=== PATIENT | female | born 1985 | race Caucasian/White ===

== ENCOUNTER 2016-10-19 03:28 | Inpatient (IN) | payer OTHER ==
[2016-10-19] VITALS (37 sets, daily range): BP systolic 103–133; BP diastolic 58–77
[~2016-10-19] VITALS: Ht 165.1 cm; Wt 73.0 kg
[2016-10-19 04:55] LABS: HEMATOCRIT 36.8 % (36.0-46.0); MCH 31.3 PG (29.0-34.0); RBC DIS.WIDTH-CV 13.6 % (11.8-14.6); RBC DIS.WIDTH-SD 44.4 % (39-53); WHITE BLOOD COUNT 19.7 K/uL (4.1-10.2)
[2016-10-19 05:25] LABS: MEAN PLAT.VOLUME 12.9 uM^3 (9.5-12.4); PLATELET COUNT 183 K/uL (156-360)
[2016-10-20] VITALS (16 sets, daily range): BP systolic 94–120; BP diastolic 53–76
[2016-10-20] MEDS ORDERED: ENDOCET 5-3251 EACH PO (09:51)
[2016-10-20] MEDS ORDERED: APRISO0.375 GM PO (18:41)
[2016-10-21 03:02] VITALS: BP 112/55
[2016-10-21 07:47] LABS: EOSINOPHIL (%) 0.2 % (0-5); HEMATOCRIT 29.7 % (36.0-46.0); IMMATURE GRANULOCYTE (%) 0.6 % (0.0-0.7); IMMATURE GRANULOCYTE COUNT 0.1 K/uL; LYMPHOCYTE COUNT 1.5 K/uL (1.0-2.8); MCH 31.4 PG (29.0-34.0); MCHC 33.3 G/DL (30.0-36.0); MCV 94.3 FL (83-99); MONOCYTE (%) 6.3 % (3-12); NEUTROPHIL (%) 82.9 % (45-76); PLATELET COUNT 130 K/uL (156-360); RBC DIS.WIDTH-CV 14.1 % (11.8-14.6); RBC DIS.WIDTH-SD 48.4 % (39-53); WHITE BLOOD COUNT 15.6 K/uL (4.1-10.2)
[2016-10-21 07:50] LABS: RED BLOOD COUNT 3.15 M/uL (3.80-5.20)
[2016-10-21 11:45] VITALS: BP 111/69
[2016-10-21 16:00] VITALS: BP 118/68
[2016-10-21 19:40] VITALS: BP 119/69
[2016-10-21 23:07] VITALS: BP 107/66
[2016-10-22 03:11] VITALS: BP 120/65
[2016-10-22 08:14] VITALS: BP 117/67
[2016-10-22 11:38] VITALS: BP 121/69
[2016-10-22 15:20] VITALS: BP 103/60
[2016-10-22 23:18] VITALS: BP 106/57
[2016-10-23 07:52] VITALS: BP 116/71
[2016-10-23 15:17] VITALS: BP 112/70
== END 2016-10-23 17:33 | disposition home or self-care (01) | DRG 766 ==
LOC: LDRP-OP 03:28 → 2WEST 03:29 → LDRP-OP 11-09 03:27
PROVIDERS: Advanced Practice Midwife; Obstetrics & Gynecology
PROC: 10D00Z1 Extraction of Products of Conception, Low, Open Approach (ICD-10-PCS; principal; 2016-10-20)
PROC: 00HU33Z Insertion of Infusion Device into Spinal Canal, Percutaneous Approach (ICD-10-PCS; principal; 2016-10-20)
PROC: 3E0R3CZ (ICD-10-PCS; principal; 2016-10-20)
DX: O48.0 Post-term pregnancy (principal); O76 Abnormality in fetal heart rate and rhythm complicating labor and delivery; Z3A.41 41 weeks gestation of pregnancy; Z37.0 Single live birth
CPT/HCPCS: 85025; 85027; C1755; G0378; J0595; J0690; J1100; J2175; J2274; J2405; J2590; J2765; J3010; J7120